=== PATIENT | male | born 2000 | race Caucasian/White ===

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

== ENCOUNTER 2019-05-24 17:50 | Emergency (ER) | payer MEDICAID, OTHER ==
[~2019-05-24] VITALS: Ht 180.3 cm; Wt 88.1 kg
[2019-05-24 20:33] VITALS: BP 143/77
== END 2019-05-24 20:24 | disposition home or self-care (01) ==
LOC: ER 17:51
DX: L25.9 Unspecified contact dermatitis, unspecified cause (principal); F12.90 Cannabis use, unspecified, uncomplicated; Z88.0 Allergy status to penicillin
CPT/HCPCS: 99281

== ENCOUNTER 2019-07-18 17:40 | Emergency (ER) | payer MEDICAID, OTHER ==
[~2019-07-18] VITALS: Ht 180.3 cm; Wt 81.8 kg
[2019-07-18 18:52] VITALS: BP 119/84
== END 2019-07-18 18:57 | disposition home or self-care (01) ==
LOC: ER 17:41
DX: B34.9 Viral infection, unspecified (principal); H10.9 Unspecified conjunctivitis; Z88.0 Allergy status to penicillin
CPT/HCPCS: 99281

== ENCOUNTER 2020-02-25 19:31 | Emergency (ER) | payer MEDICAID, OTHER ==
[~2020-02-25] VITALS: Ht 177.8 cm; Wt 84.1 kg
[2020-02-25 19:45] VITALS: BP 122/70
[2020-02-25] MEDS ORDERED: triamcinolone acetonide 40mg/ml inj IM ONE (21:30)
== END 2020-02-25 22:06 | disposition home or self-care (01) ==
LOC: ER 19:32
DX: S40.861A Insect bite (nonvenomous) of right upper arm, initial encounter (principal); F12.90 Cannabis use, unspecified, uncomplicated; Z88.0 Allergy status to penicillin; W57.XXXA Bitten or stung by nonvenomous insect and other nonvenomous arthropods, initial encounter; Y93.89 Activity, other specified; Y92.89 Other specified places as the place of occurrence of the external cause; Y99.9 Unspecified external cause status
CPT/HCPCS: 96372; 99283; J3301

== ENCOUNTER 2020-03-23 22:51 | Emergency (ER) | payer MEDICAID ==
[~2020-03-23] VITALS: Ht 177.8 cm; Wt 85.0 kg
[2020-03-23 22:55] VITALS: BP 161/105
[2020-03-23] MEDS ORDERED: CLIN-97 PO (23:19)
== END 2020-03-23 23:32 | disposition home or self-care (01) ==
LOC: ER 22:51
DX: K04.7 Periapical abscess without sinus (principal); F12.90 Cannabis use, unspecified, uncomplicated; Z88.0 Allergy status to penicillin; Z79.2 Long term (current) use of antibiotics
CPT/HCPCS: 99282; 99283

== ENCOUNTER 2020-09-15 17:43 | Emergency (ER) | payer MEDICAID ==
[~2020-09-15] VITALS: Ht 177.8 cm; Wt 90.9 kg
[~2020-09-15 17:43] MED LIST: CLIN-97 PO
[2020-09-15] MEDS ORDERED: TRIA15CR61 TOP (18:43)
[2020-09-15] MEDS ORDERED: triamcinolone acetonide 40mg/ml inj IM ONE (19:10)
[2020-09-15 19:20] VITALS: BP 122/80
== END 2020-09-15 19:21 | disposition home or self-care (01) ==
LOC: ER 17:44
DX: L23.9 Allergic contact dermatitis, unspecified cause (principal); F12.90 Cannabis use, unspecified, uncomplicated; Z88.0 Allergy status to penicillin; Z79.2 Long term (current) use of antibiotics; Z79.899 Other long term (current) drug therapy
CPT/HCPCS: 96372; 99283; J3301

== ENCOUNTER 2021-12-15 17:08 | Emergency (ER) | payer MEDICAID ==
[~2021-12-15] VITALS: Ht 175.3 cm; Wt 89.1 kg
[2021-12-15 17:42] VITALS: BP 122/79
[2021-12-15] MEDS ORDERED: acyclovir 200 MG capsule PO STA (18:53)
[2021-12-15] MEDS ORDERED: ACYC200C PO (18:57)
--- NOTE | 2021-12-15 18:59 | NUR ---
po med given
== END 2021-12-15 19:08 | disposition home or self-care (01) ==
LOC: ER 17:09
DX: A60.01 Herpesviral infection of penis (principal); F12.90 Cannabis use, unspecified, uncomplicated; Z79.2 Long term (current) use of antibiotics; Z88.0 Allergy status to penicillin; Z88.2 Allergy status to sulfonamides; Z88.8 Allergy status to other drugs, medicaments and biological substances
CPT/HCPCS: 99283

== ENCOUNTER 2022-03-23 21:07 | Emergency (ER) | payer MEDICAID ==
[~2022-03-23] VITALS: Ht 172.7 cm; Wt 90.0 kg
[2022-03-23 21:18] VITALS: BP 162/91
[2022-03-23] MEDS ORDERED: LIDOcaine 1% W/epiNEPHrine 1:100,000 20ml vial SQ ONE (21:55)
[2022-03-23] MEDS ORDERED: LIDOcaine 1% w/EPI 1:100,000 30ml vial (MDV) IJ ONE (22:05)
[2022-03-23] MEDS: LIDOcaine 1% w/EPI 1:100,000 30ml vial (MDV) SQ ONE ×2 (22:06→22:23)
[2022-03-23] MEDS ORDERED: LIDOcaine 1% 30ml preserv. free vial SQ STA (22:09)
== END 2022-03-23 23:16 | disposition home or self-care (01) ==
LOC: ER 21:07
DX: L72.3 Sebaceous cyst (principal); H92.01 Otalgia, right ear; F12.10 Cannabis abuse, uncomplicated; Z88.0 Allergy status to penicillin; Z88.2 Allergy status to sulfonamides; Z79.899 Other long term (current) drug therapy
CPT/HCPCS: 10060; 99282; A6449

== ENCOUNTER 2022-03-30 19:31 | Emergency (ER) | payer MEDICAID | END 2022-03-30 20:40 | disposition left against medical advice (07) | LOC: ER 19:35 | DX: Z48.00 Encounter for change or removal of nonsurgical wound dressing (principal); Z53.21 Procedure and treatment not carried out due to patient leaving prior to being seen by health care provider ==

== ENCOUNTER 2022-07-18 22:13 | Emergency (ER) | payer MEDICAID ==
[~2022-07-18] VITALS: Ht 177.8 cm; Wt 90.0 kg
[2022-07-18 22:17] VITALS: BP 163/95
[2022-07-18] MEDS ORDERED: ERYT1OIN6 RIGHTEYE (23:44)
== END 2022-07-18 23:58 | disposition home or self-care (01) ==
LOC: ER 22:14
DX: J02.9 Acute pharyngitis, unspecified (principal); H10.9 Unspecified conjunctivitis; F12.90 Cannabis use, unspecified, uncomplicated; Z88.0 Allergy status to penicillin; Z88.1 Allergy status to other antibiotic agents; Z88.8 Allergy status to other drugs, medicaments and biological substances; Z79.2 Long term (current) use of antibiotics
CPT/HCPCS: 99283

== ENCOUNTER 2023-01-20 21:00 | Emergency (ER) | payer MEDICAID ==
[~2023-01-20] VITALS: Ht 175.3 cm; Wt 89.2 kg
[2023-01-20 21:21] VITALS: BP 156/103; PULSE 64; RESP 18; TEMP 97; O2SAT 98
== END 2023-01-20 23:42 | disposition home or self-care (01) ==
LOC: ER 21:01
DX: L91.8 Other hypertrophic disorders of the skin (principal); F12.90 Cannabis use, unspecified, uncomplicated; Z88.0 Allergy status to penicillin; Z88.2 Allergy status to sulfonamides; Z88.8 Allergy status to other drugs, medicaments and biological substances
CPT/HCPCS: 10120; 11200; 99284; 99285

== ENCOUNTER 2023-03-10 21:03 | Emergency (ER) | payer MEDICAID ==
[~2023-03-10] VITALS: Ht 177.8 cm; Wt 90.2 kg
[2023-03-10 21:15] VITALS: BP 135/91; PULSE 84; RESP 18; TEMP 98; O2SAT 96
--- NOTE | 2023-03-10 21:21 | NUR ---
pt told registration he was leaving.
[2023-03-11] MEDS ORDERED: CEPH-585 PO (10:09)
== END 2023-03-10 23:45 | disposition left against medical advice (07) ==
LOC: ER 21:04
DX: H93.8X9 Other specified disorders of ear, unspecified ear (principal); Z53.21 Procedure and treatment not carried out due to patient leaving prior to being seen by health care provider
CPT/HCPCS: 99281

== ENCOUNTER 2023-03-11 09:21 | Emergency (ER) | payer MEDICAID ==
[~2023-03-11] VITALS: Ht 177.8 cm; Wt 89.8 kg
[2023-03-11 09:43] VITALS: BP 140/82; PULSE 63; RESP 14; TEMP 97; O2SAT 98
[2023-03-11] MEDS ORDERED: CEPH-585 PO (10:09)
== END 2023-03-11 10:21 | disposition home or self-care (01) ==
LOC: ER 09:22
DX: M67.48 Ganglion, other site (principal); F12.90 Cannabis use, unspecified, uncomplicated; Z88.0 Allergy status to penicillin; Z88.2 Allergy status to sulfonamides; Z79.2 Long term (current) use of antibiotics; Z88.8 Allergy status to other drugs, medicaments and biological substances
CPT/HCPCS: 99283

== ENCOUNTER 2023-04-30 22:14 | Emergency (ER) | payer MEDICAID ==
[~2023-04-30] VITALS: Ht 172.7 cm; Wt 94.9 kg
[~2023-04-30 22:14] MED LIST changes: +CEPH-585 PO
[2023-04-30] MEDS ORDERED: iohexol 300mg/ml 100ml inj. ONE (22:43)
[2023-04-30 22:52] LABS: BILIRUBIN,URINE NEGATIVE (Neg); CLARITY,URINE CLEAR (Clear); COLOR,URINE STRAW (Yellow); GLUCOSE, URINE NEGATIVE (Neg); KETONES,URINE NEGATIVE (Neg); LEUKOCYTE ESTERASE ,URINE NEGATIVE (Neg); NITRITES, URINE NEGATIVE (Neg); OCCULT BLOOD,URINE NEGATIVE (Neg); PROTEIN,URINE NEGATIVE (Neg); UROBILINOGEN,URINE 0.2 E.U/dL (0.2-1.0)
[2023-04-30 22:59] LABS: UA COLLECTION TYPE CLN CATCH MIDSTREAM
[2023-04-30 23:39] LABS: BASOPHILS # (AUTO) 0.1 X10'3 (0-0.2); BASOPHILS % (AUTO) 0.8 % (0-1); EOSINOPHILS # (AUTO) 0.1 X10'3 (0-0.9); EOSINOPHILS % (AUTO) 1.8 % (0-6); HEMATOCRIT 44.4 % (42.0-52.0); HEMOGLOBIN 15.1 g/dl (14.0-17.9); LYMPHOCYTES # (AUTO) 3.6 X10'3 (1.1-4.8); LYMPHOCYTES % (AUTO) 50.1 % (21-51); MEAN CORPUSCULAR HEMOGLOBIN 30.7 PG (27.0-31.0); MEAN CORPUSCULAR HGB CONC 33.9 g/dL (33.0-36.5); MEAN CORPUSCULAR VOLUME 90.7 FL (78-98); MEAN PLATELET VOLUME 9.2 FL (7.4-10.4); MONOCYTES # (AUTO) 0.4 X10'3 (0-0.9); NEUTROPHILS # (AUTO) 2.9 X10'3 (1.8-7.7); NEUTROPHILS % (AUTO) 41.3 % (42-75); PLATELET COUNT 207 X10'3 (140-440); RED CELL DISTRIBUTION WIDTH 12.9 % (11.5-14.5); WHITE BLOOD COUNT 7.1 X10'3 (4.5-11.0)
[2023-04-30 23:41] LABS: ALANINE AMINOTRANSFERASE 29 U/L (12-78); ALBUMIN 3.8 G/DL (3.4-5.0); ALBUMIN/GLOBULIN RATIO 1.2 (1.1-1.5); ALKALINE PHOSPHATASE 102 IU/L (46-116); AMYLASE 41 U/L (25-115); ANION GAP 9 (8-16); ASPARTATE AMINO TRANSFERASE 22 U/L (10-37); BILIRUBIN,TOTAL 0.2 MG/DL (0.1-1.0); BLOOD UREA NITROGEN 7 MG/DL (7-18); BUN/CREATININE RATIO 7.5 (10.0-20.0); CALCIUM 8.9 MG/DL (8.5-10.1); CHLORIDE 104 MMOL/L (99-107); CREATININE 0.93 MG/DL (0.60-1.10); GLUCOSE 105 MG/DL (70-104); LIPASE 35 U/L (16-77); POTASSIUM 3.8 MMOL/L (3.5-5.1); SODIUM 141 MMOL/L (135-145); TOTAL PROTEIN 6.9 G/DL (6.4-8.2); eCRCL 120 ML/MIN; eGFR > 90 ML/MIN
[2023-04-30] MEDS ORDERED: ringers solution, lacted 1,000 ML IV ONE (23:55)
[2023-05-01] MEDS ORDERED: ONDA4TAB12 PO (00:25)
[2023-05-01] MEDS ORDERED: CYCL-1 PO (00:27)
[2023-05-01 02:25] VITALS: BP 124/74; PULSE 90; RESP 16; TEMP 98.6; O2SAT 97
== END 2023-05-01 02:27 | disposition home or self-care (01) ==
LOC: ER 22:14
DX: K29.00 Acute gastritis without bleeding (principal); Z88.0 Allergy status to penicillin; Z88.2 Allergy status to sulfonamides
CPT/HCPCS: 36415; 71045; 74177; 80053; 81003; 82150; 83690; 85025; 93005; 96360; 96361; 99285; J3490; J7120; Q9967

== ENCOUNTER 2023-07-02 02:51 | Emergency (ER) | payer MEDICAID ==
[~2023-07-02] VITALS: Ht 177.8 cm; Wt 95.5 kg
[~2023-07-02 02:51] MED LIST changes: +CYCL-1 PO; +ONDA4TAB12 PO
[2023-07-02] MEDS ORDERED: LIDOCAINE 1%/EPI 1:100,000 inj. 10 ML multi-dose vial IJ ONE (03:10)
[2023-07-02] MEDS ORDERED: TETanus/Pertussis (Acell)/Diphther VAC/PF (Tdap-Adult) 0.5ml syringe IMVAC ONE (03:10)
[2023-07-02] MEDS ORDERED: bacitracin 15gm ointment TP ONE (03:10)
[2023-07-02 04:31] VITALS: BP 135/84; PULSE 85; RESP 19; TEMP 98; O2SAT 98
== END 2023-07-02 04:33 | disposition home or self-care (01) ==
LOC: ER 02:51
DX: S61.012A Laceration without foreign body of left thumb without damage to nail, initial encounter (principal); F12.90 Cannabis use, unspecified, uncomplicated; Z88.0 Allergy status to penicillin; Z88.2 Allergy status to sulfonamides; Z88.8 Allergy status to other drugs, medicaments and biological substances; Z23 Encounter for immunization; W26.0XXA Contact with knife, initial encounter; Y93.89 Activity, other specified; Y92.89 Other specified places as the place of occurrence of the external cause; Y99.8 Other external cause status
CPT/HCPCS: 12001; 73140; 90471; 90715; 99283; J3490

== ENCOUNTER 2023-07-03 20:21 | Emergency (ER) | payer MEDICAID ==
[~2023-07-03] VITALS: Ht 175.3 cm; Wt 93.2 kg
[2023-07-03 20:34] VITALS: BP 143/90; PULSE 89; RESP 18; TEMP 97.8; O2SAT 96
[2023-07-03] MEDS ORDERED: bacitracin 15gm ointment TP ONE (21:00)
== END 2023-07-03 21:45 | disposition home or self-care (01) ==
LOC: ER 20:22
DX: Z48.00 Encounter for change or removal of nonsurgical wound dressing (principal); F12.90 Cannabis use, unspecified, uncomplicated; Z88.0 Allergy status to penicillin; Z88.1 Allergy status to other antibiotic agents; Z88.8 Allergy status to other drugs, medicaments and biological substances; Z79.2 Long term (current) use of antibiotics; Z79.899 Other long term (current) drug therapy
CPT/HCPCS: 99282; A6222; A6449

== ENCOUNTER 2024-08-03 00:13 | Emergency (ER) | payer MEDICAID ==
[~2024-08-03] VITALS: Ht 177.8 cm; Wt 101.2 kg
[~2024-08-03 00:13] MED LIST changes: -CEPH-585 PO; +ONDA-243 PO; -ONDA4TAB12 PO
[2024-08-03] MEDS: ketorolac trometh 15mg/ml vial 15 MG/ML ML IV ONE (02:24)
[2024-08-03] MEDS: normal saline 1000ML IV soln IVB ONE (02:24)
[2024-08-03] MEDS: dexamethasone sod phosphate 10mg/ml inj IV STA (02:24)
[2024-08-03 02:40] LABS: BASOPHILS % (AUTO) 0.6 % (0-1); EOSINOPHILS % (AUTO) 0.7 % (0-6); HEMATOCRIT 46.6 % (42.0-52.0); HEMOGLOBIN 16.1 g/dl (14.0-17.9); LYMPHOCYTES # (AUTO) 1.6 X10'3 (1.1-4.8); LYMPHOCYTES % (AUTO) 26.1 % (21-51); MEAN CORPUSCULAR HEMOGLOBIN 30.3 PG (27.0-31.0); MEAN CORPUSCULAR HGB CONC 34.5 g/dL (33.0-36.5); MEAN CORPUSCULAR VOLUME 87.6 FL (78-98); MEAN PLATELET VOLUME 8.9 FL (7.4-10.4); MONOCYTES # (AUTO) 0.8 X10'3 (0-0.9); MONOCYTES % (AUTO) 12.9 % (2-12); NEUTROPHILS # (AUTO) 3.7 X10'3 (1.8-7.7); NEUTROPHILS % (AUTO) 59.7 % (42-75); PLATELET COUNT 184 X10'3 (140-440); RED BLOOD COUNT 5.31 X10'6 (4.70-6.10); RED CELL DISTRIBUTION WIDTH 13.3 % (11.5-14.5); WHITE BLOOD COUNT 6.2 X10'3 (4.5-11.0)
[2024-08-03] MEDS ORDERED: ALBU18HF2 INH (03:11)
[2024-08-03 03:13] VITALS: BP 104/98; PULSE 104; RESP 18; O2SAT 98
== END 2024-08-03 03:17 | disposition home or self-care (01) ==
LOC: ER 00:14
DX: J20.9 Acute bronchitis, unspecified (principal); Z20.822 Contact with and (suspected) exposure to COVID-19; J02.9 Acute pharyngitis, unspecified; F12.90 Cannabis use, unspecified, uncomplicated; Z88.0 Allergy status to penicillin; Z88.1 Allergy status to other antibiotic agents; Z79.899 Other long term (current) drug therapy; Z88.2 Allergy status to sulfonamides
CPT/HCPCS: 36415; 71045; 83880; 84145; 85025; 87502; 87503; 87811; 96361; 96374; 96375; 99284; J1100; J1885; J7030

== ENCOUNTER 2024-10-22 23:39 | Emergency (ER) | payer MEDICAID ==
[~2024-10-22] VITALS: Ht 177.8 cm; Wt 102.9 kg
[~2024-10-22 23:39] MED LIST changes: +ALBU18HF2 INH
[2024-10-22 23:41] VITALS: BP 146/100; PULSE 78; RESP 17; O2SAT 99
[2024-10-23 00:23] LABS: STREP A SCREEN POSITIVE (Neg)
[2024-10-23] MEDS ORDERED: CLIN300C54 PO (00:37)
--- NOTE | 2024-10-23 00:37 | Physician Documentation ---
History of Present Illness ~ Chief Complaint: Sore Throat Stated Complaint: THROAT PAIN Time Seen by MD: 00:33 Primary Medical Doctor: [facility] HPI This 24-year-old male presents with four days of progressively worsening sore throat, patient reports fever at home, patient reports pain is minimally controlled with ibuprofen at home. Patient reports no other acute symptoms or concerns. Medication Reconciliation Allergies: Coded Allergies: Penicillins (Unverified Allergy, Unknown, 07/03/23) sulfamethoxazole (Unverified Allergy, Unknown, 07/03/23) trimethoprim (Unverified Allergy, Unknown, 07/03/23) Scheduled Albuterol Sulfate (Ventolin Hfa), 2 PUFFS INH Q4HPRN Clindamycin HCL* (Clindamycin HCL*), 1 CAP PO Q6H Clindamycin HCl (Clindamycin HCl), 1 CAP PO Q8H Cyclobenzaprine* (Cyclobenzaprine*), 1 TAB PO TID Scheduled PRN ONDANSETRON ODT 4mg tablet (Ondansetron Odt), 1 TABLET PO Q6H PRN for nausea/vomiting Past Medical History Past Medical History: No Pertinent History Past Surgical History: no surgical history Alcohol Use: None Drug Use: marijuana Lives with: Family Lives In: Home Occupation: student Review of Systems ROS Sore throat as stated above in the HPI, otherwise all systems are reviewed and negative. Physical Exam Vital Signs: Temperature: 98.6, Source: Oral, Heart Rate: 78, Respiratory Rate: 17, BP: 146/100, Pulse Oximetry: 99, Weight: 102.910 Oxygen Flow Rate: 0 Physical Exam VITALS: Reviewed and as above. GENERAL: Alert, nontoxic appearing, no apparent distress. HEENT:3+ tonsils erythematous, no exudates or patches, anterior cervical lymphadenopathy, no nuchal rigidity, uvula midline. Tympanic membranes clear and normal light reflex bilaterally. RESPIRATORY: No increased work of breathing, no respiratory distress, speaking in full clear sentences Progress Results/Orders Results/Orders Completed Orders - BLANQUITA SERRATO Strep A Rapid (10/22/24 23:49) Clindamycin Capsule (Cleocin Capsule) (10/23/24 00:40) Dexamethasone Inj (Decadron 10mg/Ml Inj) (10/23/24 00:37) Medications Received in ER Medications (Trade) Dose Ordered Sig/Ramirez Route PRN Reason Start Time Stop Time Status Last Admin Dose Admin (Cleocin capsule) 300 mg ONCE ONCE PO 10/23/24 00:40 10/23/24 00:41 DC 10/23/24 01:03 300 MG (Decadron 10mg/ ml inj) 10 mg ONCE STAT PO 10/23/24 00:37 10/23/24 00:39 DC 10/23/24 01:03 10 MG Vital Signs 10/22/24 10/23/24 23:41 01:07 Temp 98.6 98.6 Pulse 78 Resp 17 B/P (MAP) 146/100 Pulse Ox 99 O2 Flow Rate 0 Laboratory Tests Test 10/22/24 23:53 Group A Streptococcus Rapid Positive H Medical Decision Making Findings This otherwise healthy, well appearing 24-year-old male presented with four days of fingers fully worsening sore throat with 3+ tonsils erythematous without patches or exudates on physical exam consistent with uncomplicated pharyngitis along with a positive rapid strep test. I have low clinical suspicion for peritonsillar abscess, uvulitis, or deep tissue space infection of the neck due to no muffled voice or drooling, uvula midline. As rapid strep test is positive, antibiotics and one-time dose of dexamethasone are indicated. As patient has an amoxicillin allergy he will be treated with clindamycin. Physical exam is otherwise benign, patient is non-toxic and well-appearing, afe brile, hemodynamically stable, non-tachypneic, non-tachycardic, and room air SpO2 of 99% interpreted as normal and adequate. Patient was appropriate for outpatient follow up. Ear Diff. Dx: Considerations: Include: Otitis externa, Barotrauma, Otitis media, Perforation, Referred pain-pharyngitis Throat Diff Dx: Considerations: Include: Epiglottitis, Herpangina, Herpetic stomatitis, Infection mononucleosis, Joshua's angina, Peritonsillar abscess, Peritonsillar cellulitis, Pharyngitis-viral, URI Departure Time of Disposition: 00:35 Disposition: 01 HOME / SELF CARE / HOMELESS Impression: Primary Impression: Strep pharyngitis Condition: Improved Discharge Instructions: Strep Throat, Adult Additional Instructions: Take the antibiotics as prescribed. Please follow up with your primary care provider in the next few days. Please return to the emergency department for any new or worsening concerning symptoms including but not limited to worsening pain, difficulty breathing, or difficulty swallowing liquids, or if you develop a fever over 100.4 that does not lower with ibuprofen or Tylenol. Referrals: NO PRIMARY CARE PROVIDER (PCP) Prescriptions Clindamycin HCl (Clindamycin HCl) 300 Mg Capsule 1 CAP PO Q8H for 10 Days, #30 CAP Prov: BLANQUITA SERRATO 10/23/24 Education Educated: Patient Educated regarding: diagnosis, treatment, prognosis, need for follow up Signature Scribe Signature: No scribe Attestation: The note accurately reflects work and decisions made by me.KEN Aguilar 10/23/24 04:06 BLANQUITA SERRATO October 23, 2024 00:37
[2024-10-23] MEDS: clindamycin 150mg capsule PO ONE (01:03)
[2024-10-23] MEDS: dexamethasone sod phosphate 10mg/ml inj PO STA (01:03)
[2024-10-23 01:07] VITALS: TEMP 98.6
== END 2024-10-23 01:08 | disposition home or self-care (01) ==
LOC: ER 23:39
DX: J02.0 Streptococcal pharyngitis (principal); F12.90 Cannabis use, unspecified, uncomplicated; Z88.0 Allergy status to penicillin; Z88.1 Allergy status to other antibiotic agents; Z88.2 Allergy status to sulfonamides
CPT/HCPCS: 87880; 99283; J1100

== ENCOUNTER 2025-03-16 19:20 | Emergency (ER) | payer MEDICAID ==
[~2025-03-16] VITALS: Ht 177.8 cm; Wt 103.0 kg
[~2025-03-16 19:20] MED LIST changes: +CLIN-224 PO; -CLIN-97 PO
--- NOTE | 2025-03-16 21:29 | Physician Documentation ---
History of Present Illness ~ Chief Complaint: Wound Stated Complaint: BUMP ON EAR Time Seen by MD: 20:50 Primary Medical Doctor: [facility] HPI 24-year-old male presenting with a painful cyst behind his left ear. He tells me that it has been present before, and got infected. He came to the ER and they tried to remove it. However it returned. It is now painful and swollen and red. No fevers, chills or other infectious type symptoms. Tetanus within 5 years?: No Medication Reconciliation Allergies: Coded Allergies: Penicillins (Unverified Allergy, Unknown, 03/16/25) sulfamethoxazole (Unverified Allergy, Unknown, 03/16/25) trimethoprim (Unverified Allergy, Unknown, 03/16/25) Scheduled Albuterol Sulfate (Ventolin Hfa), 2 PUFFS INH Q4HPRN Clindamycin HCL* (Clindamycin HCL*), 1 CAP PO Q6H Clindamycin HCl (Clindamycin HCl CAPSULE), 1 CAP PO TID Cyclobenzaprine* (Cyclobenzaprine*), 1 TAB PO TID Scheduled PRN ONDANSETRON ODT 4mg tablet (Ondansetron Odt), 1 TABLET PO Q6H PRN for nausea/vomiting Past Medical History Past Medical History: No Pertinent History Past Surgical History: no surgical history Alcohol Use: None Drug Use: marijuana Lives with: Family Lives In: Home Occupation: student Review of Systems Constitutional: Denies: fever ENT: Reports: ear pain Physical Exam Vital Signs: Temperature: 96.8, Source: Temporal, Heart Rate: 93, Respiratory Rate: 16, BP: 149/113, Pulse Oximetry: 98, Weight: 103.000 Physical Exam General: This is a healthy-appearing young man sitting calmly in bed HEENT: The patient has a infected cyst behind his left ear, that is tight and swollen, erythematous, and coming to a head. No drainage. No surrounding cellulitis Heart: Regular rate, normal-appearing peripheral perfusion Lungs: normal work of breathing, normal oxygen saturation on room air Neuro: Alert and oriented Psychiatric: Calm and cooperative with exam Procedures I & D Procedure : Site: Left posterior ear infected cyst Anesthesia: Lidocaine w/ Epi Blade Size: 11 Prep/Supplies: drapes applied, irrigated Incision: mass incised, pus drained Tolerated Procedure Well?: yes, no complications Procedure Note The infected cyst was cleaned and incised, in the infected material was removed and the cyst was probed and de loculated. Gauze and bandaging was placed to catch drainage. The patient tolerated this well, no complications. Progress Results/Orders Results/Orders Completed Orders - NESSA SANDY MD Lidocaine 1% W/Epi 1:100,000 (Xylocaine (03/16/25 21:30) Clindamycin Capsule (Cleocin Capsule) (03/16/25 22:55) Medications Received in ER Medications (Trade) Dose Ordered Sig/Ramirez Route PRN Reason Start Time Stop Time Status Last Admin Dose Admin (Cleocin capsule) 300 mg ONCE ONCE PO 03/16/25 22:55 03/16/25 22:56 DC 03/16/25 23:02 300 MG Vital Signs 03/16/25 03/16/25 19:27 23:04 Temp 96.8 98.6 Pulse 93 90 Resp 16 18 B/P (MAP) 149/113 150/109 Pulse Ox 98 99 Medical Decision Making Additional Comment The patient presents with an infected cyst behind his ear. No systemic symptoms or fevers. No surrounding cellulitis. Plan: I and D Incision and drainage was successful. The patient was discharged home with home care instructions and a short course of antibiotics. He was instructed to follow up with the insole coverer for cyst removal when the infection has resolved. Departure Time of Disposition: 22:52 Disposition: 01 HOME / SELF CARE / HOMELESS Impression: Primary Impression: Infected cyst of skin Condition: Improved Discharge Instructions: Skin Abscess Referrals: NO PRIMARY CARE PROVIDER (PCP) Prescriptions Clindamycin HCl (Clindamycin HCl CAPSULE) 150 Mg Capsule 1 CAP PO TID for 5 Days, #15 CAP Prov: NESSA SANDY MD 03/16/25 Education Educated: Patient Educated regarding: diagnosis, treatment, need for follow up Signature Scribe Signature: na Attestation: NESSA Hayward MD Mar 16, 2025 21:29
[2025-03-16] MEDS ORDERED: LIDOcaine 1% W/epiNEPHrine 1:100,000 20ml vial SQ ONE (21:30)
[2025-03-16] MEDS: LIDOcaine 1% W/epiNEPHrine 1:100,000 20ml vial SQ ONE (22:28)
[2025-03-16] MEDS ORDERED: CLIN-214 PO (22:53)
[2025-03-16 23:04] VITALS: BP 150/109; PULSE 90; RESP 18; TEMP 98.6; O2SAT 99
== END 2025-03-16 23:06 | disposition home or self-care (01) ==
LOC: ER 19:21
DX: L08.9 Local infection of the skin and subcutaneous tissue, unspecified (principal); F12.90 Cannabis use, unspecified, uncomplicated; Z88.0 Allergy status to penicillin; Z88.2 Allergy status to sulfonamides; Z79.899 Other long term (current) drug therapy
CPT/HCPCS: 10060; 99283; A6449